=== PATIENT | female | born 1950 | race Caucasian/White ===

== ENCOUNTER → 2018-02-28 09:39 | Outpatient (CLI) | payer MEDICARE, SELFPAY ==
--- NOTE | 2018-02-28 09:45 | MM_ITS ---
MM Dig screening mamm BI w/CAD CAD Screening ORDERING PHYSICIAN : Ever Chun MD PATIENT AGE: 67 years GENDER: Femal INDICATION: Routine screening. No hormones. No new complaints. Noncontributory family history. TECHNIQUE: Standard CC and MLO images were obtained. R2 CAD reviewed. COMPARISON September 2015, December 2012 and 27 09 FINDINGS: Low-density breast bilaterally with generalized fatty replacement and minimal fibroglandular density in both breast.. No dominant mass nor suspicious calcifications in either breast. . No significant change since previous studies.. Follow up one year adequate IMPRESSION: ======== Stable bilateral mammogram. Low-density breast with no new areas of significant concern. Bilateral follow-up in one year recommended. BI-RADS Category: 1 Negative RECOMMENDED FOLLOW-UP: 1YR - 1 YEAR FOLLOW-UP (A letter has been sent to the patient regarding results of the study.)
--- NOTE | 2018-02-28 09:45 | XR_ITS ---
XR DEXA axial skeleton HISTORY: ITS.REASON: OSTEOPENIA ORDERING PHYSICIAN: Ever Chun MD PATIENT AGE: 67 years COMPARISON: 02/24/2012 FINDINGS: The BMD measured at the left femoral neck is 0.940 g/cm squared with a T score of -0.7 . The mean density in the hips has a T score of 0.9 which is normal. This is considered Normal according to the World Health Organization criteria. Fracture risk is Low. IMPRESSION: Normal bone density. Recommend follow-up exam in February 2020
== END ==
PROVIDERS: Family Provider Family Medicine; PCP Family Medicine; Visit Provider Family Medicine
DX: Z12.31 Encounter for screening mammogram for malignant neoplasm of breast (principal); M85.89 Other specified disorders of bone density and structure, multiple sites
CPT/HCPCS: 77067; 77080

== ENCOUNTER → 2018-03-16 14:54 | Outpatient (POV) | payer MEDICARE, SELFPAY | PROVIDERS: Family Provider Family Medicine; PCP Family Medicine | DX: Z00.00 Encounter for general adult medical examination without abnormal findings (principal) ==

== ENCOUNTER → 2018-08-16 08:51 | Outpatient (POV) | payer MEDICARE, SELFPAY | PROVIDERS: Visit Provider Dermatology | DX: Z00.00 Encounter for general adult medical examination without abnormal findings (principal) ==

== ENCOUNTER → 2018-08-23 14:38 | Outpatient (CLI) | payer MEDICARE, SELFPAY | PROVIDERS: PCP Family Medicine; Visit Provider Family Medicine | DX: R00.2 Palpitations (principal) | CPT/HCPCS: 93225; 93226 ==

== ENCOUNTER → 2018-08-24 08:56 | Outpatient (CLI) | payer MEDICARE, SELFPAY ==
[2018-08-24 10:49] LABS: Anion Gap 8.3 mEq/L (5-15); Blood Urea Nitrogen 15 mg/dL (7-18); Calcium 9.2 mg/dL (8.5-10.1); Carbon Dioxide 31 mmol/L (21.0-32.0); Chloride 104 mmol/L (98-107); Creatinine,Serum 0.99 mg/dL (0.55-1.02); Estimated Glomerular Filt Rate 56 ml/min (>60); GFR (African American) 68 ML/MIN (>60); Glucose 93 mg/dL (74-106); Potassium 4.3 mmoL/L (3.5-5.1); Sodium 139 mmol/L (136-145)
== END ==
PROVIDERS: PCP Family Medicine; Visit Provider Family Medicine
DX: E03.9 Hypothyroidism, unspecified (principal); R00.2 Palpitations; I10 Essential (primary) hypertension
CPT/HCPCS: 36415; 80048; 84436; 84443

== ENCOUNTER → 2019-03-03 08:09 | Outpatient (CLI) | payer MEDICARE, SELFPAY ==
--- NOTE | 2019-03-03 08:12 | MM_ITS ---
MM Dig screening mamm BI w/CAD CAD Screening COMPARISON: Digital mammograms with CAD 09/24/2015 and 02/28/2018 INDICATION: There is no personal or family history of breast cancer TECHNIQUE: Standard CC and MLO images were obtained. R2 CAD reviewed. FINDINGS: The breasts are composed primarily of fat with minimal scattered fibroglandular densities in each breast. There is no new or suspicious lesion in either breast and there are no suspicious microcalcifications. IMPRESSION: Fatty type breast parenchyma no suspicious lesion seen BI-RADS Category: 1 Negative RECOMMENDED FOLLOW-UP: 1YR - 1 YEAR FOLLOW-UP (A letter has been sent to the patient regarding results of the study.)
== END ==
PROVIDERS: PCP Family Medicine; Visit Provider Family Medicine
DX: Z12.31 Encounter for screening mammogram for malignant neoplasm of breast (principal)
CPT/HCPCS: 77067

== ENCOUNTER → 2020-02-29 09:02 | Outpatient (CLI) | payer MEDICARE, SELFPAY ==
--- NOTE | 2020-02-29 09:08 | XR_ITS ---
PROCEDURE: XR IVP W KUB CLINICAL INDICATION: RT FLANK PAIN COMPARISON: No exams were available for comparison FINDINGS: M[employer] Cutter exam demonstrates degenerative changes in the lumbar spine. There are mild osteoarthritic changes of the hips. The kidneys are normal size shape and position. The left renal collecting system has an unremarkable appearance. There is mild right hydronephrosis with dilatation of the right renal pelvis and renal calices. The right ureter is normal in caliber. The findings are consistent with a mild to moderate right UPJ stenosis. 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
== END ==
PROVIDERS: PCP Family Medicine; Visit Provider Family Medicine
DX: R10.9 Unspecified abdominal pain (principal)
CPT/HCPCS: 74400; Q9967

== ENCOUNTER → 2020-03-07 15:00 | Outpatient (CLI) | payer MEDICARE, SELFPAY ==
--- NOTE | 2020-03-07 15:07 | US_ITS ---
PROCEDURE: US TRANSVAGINAL CLINICAL INDICATION: H/O RT FLANK PAIN COMPARISON: No exams were available for comparison FINDINGS: UTERUS: 6cm x 4cmx 2cm with a combined endometrial thickness of 1.3mm LEFT OVARY: [id number] with a volume of 3.6ml. RIGHT OVARY: [id number] with a volume of 1ml. There is a small amount of fluid within the endometrium with a combined endometrial thickness of 2 mm. No cul-de-sac fluid is evident. No adnexal mass. IMPRESSION: There is a small amount of fluid within the endometrium otherwise negative Dictated by: Jose Ignacio MD 03/07/2020 16:48 Electronically signed by Jose Ignacio MD in [place] 03/07/2020 16:48
== END ==
PROVIDERS: PCP Family Medicine; Visit Provider Family Medicine
DX: Z87.898 Personal history of other specified conditions (principal)
CPT/HCPCS: 76830

== ENCOUNTER → 2020-03-22 10:36 | Outpatient (CLI) | payer MEDICARE, SELFPAY ==
--- NOTE | 2020-03-22 10:40 | MM_ITS ---
PROCEDURE: MM DIG SCREENING MAMM BI W/CAD DIGITAL BREAST TOMOSYNTHESIS INCLUDED Patient Age:69Y CLINICAL INDICATION: SCREENING 69-year-old no hormones no new complaints noncontributory family history COMPARISON: DIGMAMMS MAMMOGRAM SCREEN-LADLE HANDLER N/C from 03/31/2006 DIGMAMMS MAMMOGRAM SCREEN-LADLE HANDLER N/C from 01/07/2009 [facility] DIGITAL MAMM-SCREEN BILATERAL from 12/19/2010 [facility] DIGITAL MAMM-SCREEN BILATERAL from 12/26/2012 [facility] DIG MAMM-SCREEN FLACO from 09/24/2015 [facility] MM Dig screening mamm BI w/CAD from 02/28/2018 [facility] MM Dig screening mamm BI w/CAD from 03/03/2019 TECHNIQUE: Standard CC and MLO images were obtained. R2 CAD reviewed. Bilateral digital breast tomosynthesis included. FINDINGS: Minimal residual fibroglandular elements Lower density breast with generalized fatty replacement.. No dominant or suspicious mass. Few tiny round densities both breast again noted. No architectural distortion the no suspicious calcifications. No significant change since prior studies. Right breast: No significant new findings. Subtle nodular density upper-outer quadrant right breast most likely reflects stable small intramammary node but Left breast: No new areas of significant concern Few scattered small nodular densities similar to last year noted.. Follow-up 1 year recommended and would be encouraged IMPRESSION: No new findings of significant concern. Bilateral follow-up 1 year recommended and would be encouraged . BI-RAD Category: 2 Benign Finding(s) FOLLOW-UP: 1YR 1 Year Follow-up (A letter has been sent to the patient regarding results of the study.) Dictated by: Rito Cast MD 04/02/2020 08:52 Electronically signed by Rito Cast MD in [place] 04/02/2020 08:52
== END ==
PROVIDERS: PCP Family Medicine; Visit Provider Nurse Practitioner Family
DX: Z12.31 Encounter for screening mammogram for malignant neoplasm of breast (principal)
CPT/HCPCS: 77063; 77067

== ENCOUNTER → 2021-08-12 08:19 | Outpatient (CLI) | payer MEDICARE, SELFPAY ==
--- NOTE | 2021-08-12 08:22 | MM_ITS ---
PROCEDURE: MM DIG SCREENING MAMM BI W/CAD Digital Breast Tomosynthesis Included CLINICAL INDICATION: SCREENING There is no personal or family history of breast cancer. COMPARISON: MG [facility] MM Dig screening mamm BI w/CAD from 02/28/2018 MG [facility] MM Dig screening mamm BI w/CAD from 03/03/2019 MG MM DIG SCREENING MAMM BI W/CAD from 03/22/2020 TECHNIQUE: Standard CC and MLO images and 3D Tomosynthesis was obtained. R2 CAD reviewed. FINDINGS: The breasts are composed primarily of fat with minimal scattered diffuse fibroglandular densities in each breast. There are 2 mole markers right breast. There are no CAD markings. There are stable tiny benign-appearing nodular densities in each breast. There is no suspicious lesion and no suspicious microcalcifications. IMPRESSION: Fatty type breast parenchyma with no suspicious lesions seen BI-RAD Category: 2 Benign Finding(s) FOLLOW-UP: 1YR 1 Year Follow-up (A letter has been sent to the patient regarding results of the study.) Dictated by: Dr. Juan Bejarano MD 08/15/2021 14:37 Dr. Juan Bejarano MD in [place] 08/15/2021 14:37
== END ==
PROVIDERS: PCP Family Medicine; Visit Provider Nurse Practitioner Family
DX: Z12.31 Encounter for screening mammogram for malignant neoplasm of breast (principal)
CPT/HCPCS: 77063; 77067

== ENCOUNTER → 2021-08-19 09:03 | Outpatient (POV) | payer MEDICARE, SELFPAY | PROVIDERS: Visit Provider Dermatology | DX: Z00.00 Encounter for general adult medical examination without abnormal findings (principal) ==

== ENCOUNTER → 2022-09-02 10:07 | Outpatient (CLI) | payer MEDICARE, SELFPAY ==
[2022-09-02 10:14] LABS: Microscopic, Urine URINE MICROSCOPIC (MICROSCOPIC)
[2022-09-02 11:10] LABS: Appearance,Urine CLEAR (Clear); Basophils # 0.1 K/mm3 (0-0.2); Basophils % 1.1 % (0.1-2.0); Bilirubin,Urine Negative (Negative); Blood, Urine TRACE-L (Negative); Color,Urine YELLOW (Yellow); Eosinophils # 0.2 K/mm3 (0.0-0.4); Eosinophils % 2.6 % (0.1-12.0); Glucose,Urine (UA) Negative (Negative); Hematocrit 44.1 % (37.0-47.0); Ketones,Urine Negative (Negative); Leukocyte Esterase,Urine Negative (Negative); Lymphocytes # 2.9 K/mm3 (0.7-4.5); Lymphocytes % 35.7 % (10-50); Mean Corpuscular HGB Conc 31.7 g/dL (31.8-35.4); Mean Corpuscular Hemoglobin 30.2 pg (27.0-31.2); Mean Corpuscular Volume 95.4 fl (81-99); Mean Platelet Volume 7.8 fl (7.4-10.4); Monocytes # 0.5 K/mm3 (0.1-1.0); Monocytes % 5.9 % (1.7-9.3); Neutrophils # 4.5 K/mm3 (1.8-7.8); Neutrophils % 54.7 % (37.0-80.0); Nitrate,Urine Negative (Negative); Platelet Count 354 K/mm3 (142-424); Protein,Urine Negative (Negative); Red Blood Count 4.62 M/mm3 (4.20-5.40); Red Cell Distribution Width 12.5 % (11.5-17.5); Specific Gravity, Urine <= 1.005 (1.005-1.030); Urobilinogen,Urine 0.2 EU/dl (0.2); White Blood Count 8.2 K/mm3 (4.8-10.8)
[2022-09-02 11:24] LABS: WBC,Urine Occasional #/hpf (0-3)
[2022-09-02 11:25] LABS: Bacteria,Urine Trace /lpf
[2022-09-02 11:28] LABS: Alanine Aminotransferase 24 U/L (12-78); Albumin Level 4.2 g/dl (3.5-5.0); Albumin/Globulin Ratio 1.5 (1.1-1.8); Alkaline Phosphatase 101 U/L (38-126); Anion Gap 15.1 mEq/L (5-15); Aspartate Amino Transferase 37 U/L (14-36); Bilirubin,Total 0.5 mg/dl (0.2-1.3); Blood Urea Nitrogen 14 mg/dl (7-17); Calcium 9.3 mg/dl (8.4-10.2); Carbon Dioxide 26 mmol/L (22.0-30.0); Chloride 106 mmol/L (98-107); Chol/HDL Ratio 2.6 (1-3.5); Cholesterol 139 mg/dl (140-200); Estimated Glomerular Filt Rate 62 ml/min (>60); GFR (African American) 75 ML/MIN (>60); Globulin 2.8 g/dL (1.3-3.2); Glucose 95 mg/dl (74-100); HDL Cholesterol 54 mg/dl (40-60); Potassium 5.1 mmoL/L (3.5-5.1); Sodium 142 mmol/L (136-145); Triglycerides 106 mg/dl (30-150); VLDL Cholesterol 21 mg/dL (0-40)
[2022-09-02 11:39] LABS: Direct LDL Cholesterol 54.09 mg/dL (100-129)
[2022-09-02 11:58] LABS: Thyroid Stimulating Hormone 0.26 uIU/mL (0.465-4.68)
== END ==
PROVIDERS: PCP Family Medicine; Visit Provider Family Medicine
DX: E03.9 Hypothyroidism, unspecified (principal); I10 Essential (primary) hypertension; E78.5 Hyperlipidemia, unspecified
CPT/HCPCS: 36415; 80053; 80061; 81001; 84443; 85025

== ENCOUNTER → 2022-09-10 08:44 | Outpatient (CLI) | payer MEDICARE, SELFPAY ==
--- NOTE | 2022-09-10 08:45 | XR_ITS ---
FINAL REPORT TECHNIQUE: Bone mineral density was calculated of the lumbar spine and hip. CLINICAL HISTORY: .post menopausal FINDINGS: DEXA BONE DENSITY AXIAL SKELETON Using L1-4, the bone mineral density of the spine is 1.219 g/cm2, corresponding to T-score of 1.6. Using the left hip, the bone mineral density of the femoral neck is 0.924 g/cm2, corresponding to a T-score of -0.1. NOTE: T-score: Standard deviation compared with peak bone mass of young adult mean. *Following the recommendations of the International Society of Bone densitometry, classification of hip BMD is based on the lower of two T-scores; total hip or femoral neck. IMPRESSION: Normal bone mineral density of the lumbar spine and hip. FRAX not reported because all T-scores for spine total, hip total, femoral neck at or above-1.0. Reviewed, Interpreted and Dictated by Brayden Romeo III, MD Transcribed by Taya Maher Authenticated and [facility]
== END ==
PROVIDERS: PCP Family Medicine; Visit Provider Family Medicine
DX: Z78.0 Asymptomatic menopausal state
CPT/HCPCS: 77080

== ENCOUNTER → 2022-09-21 15:09 | Outpatient (CLI) | payer MEDICARE, SELFPAY ==
--- NOTE | 2022-09-21 15:09 | MM_ITS ---
PROCEDURE INFORMATION: Exam: MG Bilateral Screening 3D Mammography Exam date and time: 09/21/2022 3:36 PM Age: 71 years old Clinical indication: Screening. No family history of breast cancer. TECHNIQUE: Imaging protocol: Bilateral Screening tomosynthesis and 2D mammography including computer-aided detection (CAD) when performed. COMPARISON: 1. MG MM DIG SCREENING MAMM BI W/CAD 08/12/2021 8:24 AM 2. MG MM DIG SCREENING MAMM BI W/CAD 03/22/2020 11:05 AM 3. MG [facility] MM Dig screening mamm BI w/CAD 03/03/2019 8:39 AM 4. MG [facility] MM Dig screening mamm BI w/CAD 02/28/2018 10:09 AM FINDINGS: MAMMOGRAPHY: Breast composition: The breasts are almost entirely fatty. Mass: No suspicious mass. Architectural distortion: None. Calcifications: No suspicious calcifications. Asymmetric density: None. Skin thickening: None. Axillary adenopathy: None. IMPRESSION: No mammographic evidence of malignancy. Annual screening is recommended unless otherwise clinically indicated. ASSESSMENT: BI-RADS Category 1: Negative
--- NOTE | 2022-09-21 15:09 | US_ITS ---
FINAL REPORT TECHNIQUE: Transvaginal ultrasound imaging of the pelvis was obtained. CLINICAL HISTORY: .follow up, hx of fluid in uterus, post katina FINDINGS: The uterus measures 6.5 x 3.0 x 4.2 cm. The endometrium measures 7 mm. The left ovary measures 1.93 cm. The right ovary is not visualized. Fluid is again seen in the endometrium measuring 4 mm in depth. IMPRESSION: Persistent fluid in the endometrium. Reviewed, Interpreted and Dictated by Vamshi Roche MD Transcribed by Chasity Herndon Authenticated and [facility]
== END ==
PROVIDERS: PCP Family Medicine; Visit Provider Family Medicine
DX: N95.0 Postmenopausal bleeding (principal); Z12.31 Encounter for screening mammogram for malignant neoplasm of breast
CPT/HCPCS: 76856; 77063; 77067

== ENCOUNTER → 2022-11-17 09:39 | Outpatient (CLI) | payer MEDICARE, SELFPAY ==
[2022-11-17 09:58] LABS: MANUAL DIFFERENTIAL MANUAL DIFFERENTIAL (MANUAL DIFF)
[2022-11-17 11:05] LABS: Basophils # 0.1 K/mm3 (0-0.2); Basophils % 0.8 % (0.1-2.0); Eosinophils # 0.1 K/mm3 (0.0-0.4); Eosinophils % 1.2 % (0.1-12.0); Hematocrit 45.9 % (37.0-47.0); Hemoglobin 14.4 g/dL (12.2-16.2); Lymphocytes # 3.2 K/mm3 (0.7-4.5); Mean Corpuscular HGB Conc 31.3 g/dL (31.8-35.4); Mean Corpuscular Hemoglobin 29.9 pg (27.0-31.2); Mean Corpuscular Volume 95.6 fl (81-99); Mean Platelet Volume 8.4 fl (7.4-10.4); Monocytes # 0.4 K/mm3 (0.1-1.0); Neutrophils # 4.4 K/mm3 (1.8-7.8); Platelet Count 373 K/mm3 (142-424); Red Cell Distribution Width 12.5 % (11.5-17.5); White Blood Count 8.2 K/mm3 (4.8-10.8)
[2022-11-17 11:18] LABS: Alanine Aminotransferase 25 U/L (12-78); Albumin Level 4.5 g/dl (3.5-5.0); Albumin/Globulin Ratio 1.6 (1.1-1.8); Alkaline Phosphatase 76 U/L (38-126); Anion Gap 14.1 mEq/L (5-15); Aspartate Amino Transferase 31 U/L (14-36); Bilirubin,Total 0.5 mg/dl (0.2-1.3); Blood Urea Nitrogen 16 mg/dl (7-17); Calcium 9.5 mg/dl (8.4-10.2); Carbon Dioxide 26 mmol/L (22.0-30.0); Chloride 104 mmol/L (98-107); Estimated Glomerular Filt Rate 55 ml/min (>60); GFR (African American) 66 ML/MIN (>60); Globulin 2.9 g/dL (1.3-3.2); Glucose 93 mg/dl (74-100); Potassium 5.1 mmoL/L (3.5-5.1); Sodium 139 mmol/L (136-145); Total Protein,Serum 7.4 g/dl (6.3-8.2)
[2022-11-17 11:22] LABS: Lymphocytes % 38 % (10-50); Monocytes % 7 % (2-9); Neutrophils % 55 % (42-76); Total Cells Counted 100
[2022-11-17 11:23] LABS: Platelet Estimate Normal; RBC Morphology Normal
[2022-11-17 11:50] LABS: Thyroid Stimulating Hormone 2.37 uIU/mL (0.465-4.68)
== END ==
PROVIDERS: PCP Family Medicine; Visit Provider Family Medicine
DX: E03.9 Hypothyroidism, unspecified (principal); E55.9 Vitamin D deficiency, unspecified; E78.5 Hyperlipidemia, unspecified; I10 Essential (primary) hypertension
CPT/HCPCS: 36415; 80053; 84443; 85007; 85014; 85018; 85048; 85049

== ENCOUNTER → 2023-01-06 12:54 | Outpatient (CLI) | payer MEDICARE, SELFPAY ==
--- NOTE | 2023-01-06 12:55 | US_ITS ---
FINAL REPORT TECHNIQUE: Sonographic images of the pelvis were obtained transvaginally. CLINICAL HISTORY: fluid in endometrial cavity COMPARISON: 03/07/2020 and 09/21/2022 FINDINGS: The uterus is anteverted and anteflexed. It measures 6.4 x 3.6 x 3.0 cm. There is fluid within the endometrial cavity and also there are some internal echoes. The endometrial stripe measures 4 mm which is normal in a postmenopausal patient. The myometrium is homogeneous. The cervix is within normal limits. The right ovary measures 1.5 x 1.5 x 0.8 cm. It is normal in appearance. The left ovary measures 1.3 x 1.3 x 1.7 cm. It is normal in appearance. Color imaging to the ovaries is within normal limits. There is a small amount of free fluid. IMPRESSION: 1. Small amount of fluid within the endometrial cavity which has been present since 2019, cervical stenosis cannot be excluded. Internal echoes within the endometrial cavity could be blood product. 2. Normal endometrial stripe for postmenopausal patient. Reviewed, Interpreted and Dictated by Britta Eddy MD Transcribed by Taya Maher Authenticated and [facility]
== END ==
PROVIDERS: PCP Family Medicine; Visit Provider Obstetrics & Gynecology
DX: N85.9 Noninflammatory disorder of uterus, unspecified (principal)
CPT/HCPCS: 76830

== ENCOUNTER → 2023-05-17 11:20 | Outpatient (CLI) | payer MEDICARE, SELFPAY ==
[2023-05-17 10:56] LABS: Alanine Aminotransferase 29 U/L (12-78); Albumin Level 4.4 g/dl (3.5-5.0); Albumin/Globulin Ratio 1.6 (1.1-1.8); Alkaline Phosphatase 77 U/L (38-126); Anion Gap 12.5 mEq/L (5-15); Aspartate Amino Transferase 33 U/L (14-36); Bilirubin,Total 0.7 mg/dl (0.2-1.3); Blood Urea Nitrogen 16 mg/dl (7-17); Calcium 9.5 mg/dl (8.4-10.2); Carbon Dioxide 26 mmol/L (22.0-30.0); Chloride 106 mmol/L (98-107); Chol/HDL Ratio 2.3 (1-3.5); Cholesterol 138 mg/dl (140-200); Estimated Glomerular Filt Rate 55 ml/min (>60); GFR (African American) 66 ML/MIN (>60); Globulin 2.8 g/dL (1.3-3.2); Glucose 102 mg/dl (74-100); HDL Cholesterol 61 mg/dl (40-60); Potassium 4.5 mmoL/L (3.5-5.1); Sodium 140 mmol/L (136-145); Total Protein,Serum 7.2 g/dl (6.3-8.2); Triglycerides 127 mg/dl (30-150); VLDL Cholesterol 25 mg/dL (0-40)
[2023-05-17 11:07] LABS: Direct LDL Cholesterol 57.46 mg/dL (100-129)
[2023-05-17 11:13] LABS: 25-OH Vitamin D, Total 65.3 ng/mL (30-100)
[2023-05-17 11:26] LABS: Thyroid Stimulating Hormone 0.74 uIU/mL (0.465-4.68)
== END ==
PROVIDERS: PCP Nurse Practitioner Family; Visit Provider Nurse Practitioner Family
DX: E55.9 Vitamin D deficiency, unspecified (principal); Z13.1 Encounter for screening for diabetes mellitus; E03.9 Hypothyroidism, unspecified; E78.5 Hyperlipidemia, unspecified; Z79.899 Other long term (current) drug therapy
CPT/HCPCS: 80053; 80061; 82306; 84443

== ENCOUNTER → 2023-08-23 11:46 | Outpatient (CLI) | payer MEDICARE, SELFPAY ==
--- NOTE | 2023-08-23 11:51 | XR_ITS ---
FINAL REPORT CLINICAL HISTORY: lle injury cut on lateral side (08/18/23). infected FINDINGS: LEFT TIBIA AND FIBULA There is no acute fracture or dislocation. The joint spaces are intact. There are mild to moderate degenerative changes, worse at the patellofemoral joint. There is no soft tissue abnormality. IMPRESSION: No acute fracture Reviewed, Interpreted and Dictated by Brayden Romeo III, MD Transcribed by Chasity Herndon Authenticated and [facility]
== END ==
PROVIDERS: PCP Nurse Practitioner Family; Visit Provider Nurse Practitioner Family
DX: S89.92XA Unspecified injury of left lower leg, initial encounter (principal); M79.662 Pain in left lower leg; B96.89 Other specified bacterial agents as the cause of diseases classified elsewhere
CPT/HCPCS: 73590; 87070; 87205

== ENCOUNTER → 2023-08-23 16:56 | Outpatient (CLI) | payer MEDICARE, SELFPAY | PROVIDERS: PCP Nurse Practitioner Family; Visit Provider Nurse Practitioner Family | DX: S81.842A Puncture wound with foreign body, left lower leg, initial encounter (principal) ==

== ENCOUNTER → 2023-08-30 14:25 | Outpatient (CLI) | payer MEDICARE, SELFPAY ==
[2023-08-30 13:05] LABS: Basophils % 0.5 % (0.1-2.0); Eosinophils # 0.1 K/mm3 (0.0-0.4); Eosinophils % 1.1 % (0.1-12.0); Hematocrit 43.3 % (37.0-47.0); Hemoglobin 14.7 g/dL (12.2-16.2); Lymphocytes # 2.3 K/mm3 (0.7-4.5); Mean Corpuscular HGB Conc 33.8 g/dL (31.8-35.4); Mean Corpuscular Hemoglobin 31.9 pg (27.0-31.2); Mean Corpuscular Volume 94.3 fl (81-99); Mean Platelet Volume 8.2 fl (7.4-10.4); Monocytes # 0.7 K/mm3 (0.1-1.0); Monocytes % 8.9 % (1.7-9.3); Neutrophils # 4.3 K/mm3 (1.8-7.8); Neutrophils % 58.5 % (37.0-80.0); Platelet Count 324 K/mm3 (142-424); Red Cell Distribution Width 12.4 % (11.5-17.5); White Blood Count 7.3 K/mm3 (4.8-10.8)
[2023-08-30 13:25] LABS: Chloride 102 mmol/L (98-107); Potassium 5.3 mmoL/L (3.5-5.1); Sodium 136 mmol/L (136-145)
[2023-08-30 13:27] LABS: Alanine Aminotransferase 34 U/L (12-78); Aspartate Amino Transferase 40 U/L (14-36); Blood Urea Nitrogen 16 mg/dl (7-17); Estimated Glomerular Filt Rate 37 ml/min (>60); GFR (African American) 45 ML/MIN (>60)
[2023-08-30 13:28] LABS: Albumin Level 4.7 g/dl (3.5-5.0); Albumin/Globulin Ratio 1.6 (1.1-1.8); Alkaline Phosphatase 69 U/L (38-126); Anion Gap 14.3 mEq/L (5-15); Bilirubin,Total 0.3 mg/dl (0.2-1.3); Calcium 9.6 mg/dl (8.4-10.2); Carbon Dioxide 25 mmol/L (22.0-30.0); Glucose 88 mg/dl (74-100); Total Protein,Serum 7.7 g/dl (6.3-8.2)
== END ==
PROVIDERS: PCP Nurse Practitioner Family; Visit Provider Nurse Practitioner Family
DX: S81.842A Puncture wound with foreign body, left lower leg, initial encounter (principal)
CPT/HCPCS: 36415; 80053; 83735; 85025

== ENCOUNTER → 2023-09-06 15:17 | Outpatient (CLI) | payer MEDICARE, SELFPAY ==
[2023-09-06 13:42] LABS: Alanine Aminotransferase 32 U/L (12-78); Albumin Level 4.5 g/dl (3.5-5.0); Albumin/Globulin Ratio 1.5 (1.1-1.8); Alkaline Phosphatase 67 U/L (38-126); Anion Gap 14.8 mEq/L (5-15); Aspartate Amino Transferase 34 U/L (14-36); Bilirubin,Total 0.6 mg/dl (0.2-1.3); Blood Urea Nitrogen 17 mg/dl (7-17); Calcium 9.5 mg/dl (8.4-10.2); Carbon Dioxide 24 mmol/L (22.0-30.0); Chloride 104 mmol/L (98-107); Estimated Glomerular Filt Rate 55 ml/min (>60); GFR (African American) 66 ML/MIN (>60); Glucose 87 mg/dl (74-100); Potassium 4.8 mmoL/L (3.5-5.1); Sodium 138 mmol/L (136-145); Total Protein,Serum 7.5 g/dl (6.3-8.2)
== END ==
PROVIDERS: PCP Nurse Practitioner Family; Visit Provider Nurse Practitioner Family
DX: N17.9 Acute kidney failure, unspecified (principal)
CPT/HCPCS: 36415; 80053

== ENCOUNTER 2023-11-17 18:23 | Outpatient (CLI) | payer MEDICARE, SELFPAY ==
[2023-11-17 20:08] LABS: Chol/HDL Ratio 3.3 (1-3.5); Cholesterol 144 mg/dl (140-200); HDL Cholesterol 43 mg/dl (40-60); Triglycerides 144 mg/dl (30-150); VLDL Cholesterol 29 mg/dL (0-40)
[2023-11-17 20:22] LABS: Free T4 (Free Thyroxine) 1.42 ng/dl (0.78-2.19)
[2023-11-17 20:36] LABS: Direct LDL Cholesterol 72.22 mg/dL (100-129)
[2023-11-17 21:15] LABS: Vitamin B12 470 pg/mL (239-931)
== END 2023-11-17 23:59 ==
LOC: LAB.DROPOF 18:24
PROVIDERS: PCP Nurse Practitioner Family; Visit Provider Nurse Practitioner Family
DX: E78.5 Hyperlipidemia, unspecified (principal); R53.83 Other fatigue; E03.9 Hypothyroidism, unspecified
CPT/HCPCS: 80061; 82607; 84439

== ENCOUNTER 2023-11-18 10:06 | Outpatient (CLI) | payer MEDICARE, SELFPAY ==
[2023-11-18 09:02] LABS: Thyroid Stimulating Hormone 1.55 uIU/mL (0.465-4.68)
== END 2023-11-18 23:59 ==
LOC: LAB.DROPOF 11-23 10:07
PROVIDERS: PCP Nurse Practitioner Family; Visit Provider Nurse Practitioner Family
DX: E03.9 Hypothyroidism, unspecified (principal); G47.33 Obstructive sleep apnea (adult) (pediatric)
CPT/HCPCS: 84443

== ENCOUNTER 2024-01-18 10:05 | Outpatient (POV) | payer MEDICARE, SELFPAY | END 2024-01-18 23:59 | disposition home or self-care (01) | LOC: SC 10:05 | PROVIDERS: PCP Nurse Practitioner Family; Visit Provider Dermatology | DX: Z00.00 Encounter for general adult medical examination without abnormal findings (principal) ==

== ENCOUNTER 2024-05-09 15:30 | Outpatient (CLI) | payer MEDICARE, SELFPAY ==
[2024-05-09 13:11] LABS: Microscopic, Urine URINE MICROSCOPIC (MICROSCOPIC)
[2024-05-09 13:38] LABS: Appearance,Urine CLEAR (Clear); Bilirubin,Urine Negative (Negative); Blood, Urine Negative (Negative); Color,Urine YELLOW (Yellow); Glucose,Urine (UA) Negative (Negative); Ketones,Urine Negative (Negative); Leukocyte Esterase,Urine Negative (Negative); Nitrate,Urine Negative (Negative); PH,Urine 6.5 (5.0-8.5); Protein,Urine Negative (Negative); Specific Gravity, Urine <= 1.005 (1.005-1.030); Urobilinogen,Urine 0.2 EU/dl (0.2)
[2024-05-09 14:00] LABS: Basophils # 0.1 K/mm3 (0-0.2); Basophils % 0.8 % (0.1-2.0); Eosinophils # 0.6 K/mm3 (0.0-0.4); Eosinophils % 6.5 % (0.1-12.0); Hemoglobin 14.4 g/dL (12.2-16.2); Lymphocytes # 2.8 K/mm3 (0.7-4.5); Lymphocytes % 32.4 % (10-50); Mean Corpuscular HGB Conc 37.1 g/dL (31.8-35.4); Mean Corpuscular Hemoglobin 35.5 pg (27.0-31.2); Mean Corpuscular Volume 95.9 fl (81-99); Monocytes # 0.5 K/mm3 (0.1-1.0); Monocytes % 6.3 % (1.7-9.3); Neutrophils # 4.7 K/mm3 (1.8-7.8); Platelet Count 306 K/mm3 (142-424); Red Blood Count 4.06 M/mm3 (4.20-5.40); Red Cell Distribution Width 13.4 % (11.5-17.5); White Blood Count 8.6 K/mm3 (4.8-10.8)
[2024-05-09 14:01] LABS: Alanine Aminotransferase 28 U/L (12-78); Albumin Level 4.4 g/dl (3.5-5.0); Albumin/Globulin Ratio 1.5 (1.1-1.8); Alkaline Phosphatase 76 U/L (38-126); Anion Gap 11.7 mEq/L (5-15); Aspartate Amino Transferase 35 U/L (14-36); Bilirubin,Total 0.8 mg/dl (0.2-1.3); Blood Urea Nitrogen 20 mg/dl (7-17); Calcium 9.7 mg/dl (8.4-10.2); Carbon Dioxide 26 mmol/L (22.0-30.0); Chloride 106 mmol/L (98-107); Chol/HDL Ratio 3.1 (1-3.5); Cholesterol 149 mg/dl (140-200); Estimated Glomerular Filt Rate 44 ml/min (>60); GFR (African American) 53 ML/MIN (>60); Glucose 94 mg/dl (74-100); HDL Cholesterol 48 mg/dl (40-60); Potassium 4.7 mmoL/L (3.5-5.1); Sodium 139 mmol/L (136-145); Total Protein,Serum 7.4 g/dl (6.3-8.2); Triglycerides 128 mg/dl (30-150); VLDL Cholesterol 26 mg/dL (0-40)
[2024-05-09 14:16] LABS: Free T4 (Free Thyroxine) 1.47 ng/dl (0.78-2.19)
[2024-05-09 14:18] LABS: 25-OH Vitamin D, Total 75.4 ng/mL (30-100)
[2024-05-09 15:07] LABS: Iron 136 ug/dL (37-170)
[2024-05-09 15:16] LABS: Total Iron Binding Capacity 359 ug/dL (265-497)
[2024-05-09 15:17] LABS: Vitamin B12 404 pg/mL (239-931)
[2024-05-09 15:28] LABS: Bacteria,Urine Trace /lpf
[2024-05-09 15:37] LABS: Hemoglobin A1C 5.6 % (4.0-6.0)
[2024-05-09 15:45] LABS: Ferritin 67.5 ng/ml (11.1-264)
[2024-05-10 10:18] LABS: Thyroid Stimulating Hormone 0.95 uIU/mL (0.465-4.68)
== END 2024-05-09 23:59 | disposition home or self-care (01) ==
LOC: LAB.DROPOF 15:30
PROVIDERS: PCP Nurse Practitioner Family; Visit Provider Nurse Practitioner Family
DX: R53.83 Other fatigue (principal); I10 Essential (primary) hypertension; Z13.1 Encounter for screening for diabetes mellitus; E78.5 Hyperlipidemia, unspecified; D64.9 Anemia, unspecified; E55.9 Vitamin D deficiency, unspecified; E03.9 Hypothyroidism, unspecified
CPT/HCPCS: 80050; 80053; 80061; 81001; 82306; 82607; 82728; 83036; 83540; 83550; 84156; 84439; 84443; 85025; 87086

== ENCOUNTER 2024-05-18 09:43 | Outpatient (CLI) | payer MEDICARE, SELFPAY ==
--- NOTE | 2024-05-18 09:44 | MM_ITS ---
PROCEDURE INFORMATION: Exam: MG Bilateral Screening 3D Mammography Exam date and time: 05/18/2024 9:30 AM Age: 73 years old Clinical indication: Screening examination TECHNIQUE: Imaging protocol: Bilateral Screening tomosynthesis and 2D mammography including computer-aided detection (CAD) when performed. COMPARISON: 1. MG MM DIG SCREENING MAMM BI W/CAD 09/21/2022 3:36 PM 2. MG MM DIG SCREENING MAMM BI W/CAD 08/12/2021 8:24 AM FINDINGS: MAMMOGRAPHY: Breast composition: There are scattered areas of fibroglandular density. Mass: None. Architectural distortion: None. Calcifications: No suspicious calcifications. Asymmetric density: None. Skin thickening: None. Axillary adenopathy: None. IMPRESSION: No mammographic evidence of malignancy. Annual screening is recommended unless otherwise clinically indicated. ASSESSMENT: BI-RADS Category 1: Negative
== END 2024-05-18 23:59 | disposition home or self-care (01) ==
LOC: RAD 09:44
PROVIDERS: PCP Nurse Practitioner Family; Visit Provider Nurse Practitioner Family
DX: Z12.31 Encounter for screening mammogram for malignant neoplasm of breast (principal)
CPT/HCPCS: 77063; 77067

== ENCOUNTER 2024-07-04 11:28 | Outpatient (CLI) | payer MEDICARE, SELFPAY | END 2024-07-04 23:59 | disposition home or self-care (01) | LOC: LAB 10-28 17:06 | PROVIDERS: PCP Nurse Practitioner Family; Visit Provider Nurse Practitioner Family | DX: E03.9 Hypothyroidism, unspecified (principal); M25.561 Pain in right knee | CPT/HCPCS: 80053; 84443; 84550; 85025 ==

== ENCOUNTER 2024-07-04 11:45 | Outpatient (CLI) | payer MEDICARE, SELFPAY ==
--- NOTE | 2024-07-04 12:01 | XR_ITS ---
FINAL REPORT CLINICAL HISTORY: right knee pain FINDINGS: RIGHT KNEE: 3 images of the right knee were obtained. There is no evidence of fracture or dislocation. There is mild medial compartment narrowing with osteophytes present at the medial joint margin. There is an ossific density superior to the patella, which may be degenerative. The patella may be a bipartite patella. A small joint effusion is present. IMPRESSION: Degenerative change as described above. Reviewed, Interpreted and Dictated by Vamshi Roche MD Transcribed by Wendie Daigle Authenticated and . [facility]
[2024-07-04 14:01] LABS: Basophils # 0.1 K/mm3 (0-0.2); Basophils % 0.7 % (0.1-2.0); Eosinophils # 0.5 K/mm3 (0.0-0.4); Eosinophils % 5.2 % (0.1-12.0); Hematocrit 45.5 % (37.0-47.0); Hemoglobin 14.3 g/dL (12.2-16.2); Lymphocytes # 3.4 K/mm3 (0.7-4.5); Lymphocytes % 37.7 % (10-50); Mean Corpuscular HGB Conc 31.4 g/dL (31.8-35.4); Mean Corpuscular Hemoglobin 30.4 pg (27.0-31.2); Mean Platelet Volume 8.9 fl (7.4-10.4); Monocytes # 0.6 K/mm3 (0.1-1.0); Monocytes % 6.9 % (1.7-9.3); Neutrophils # 4.4 K/mm3 (1.8-7.8); Neutrophils % 49.5 % (37.0-80.0); Platelet Count 326 K/mm3 (142-424); Red Cell Distribution Width 13.1 % (11.5-17.5); White Blood Count 8.9 K/mm3 (4.8-10.8)
[2024-07-04 17:31] LABS: Alanine Aminotransferase 28 U/L (12-78); Albumin Level 4.1 g/dl (3.5-5.0); Albumin/Globulin Ratio 1.3 (1.1-1.8); Alkaline Phosphatase 75 U/L (38-126); Aspartate Amino Transferase 36 U/L (14-36); Bilirubin,Total 0.7 mg/dl (0.2-1.3); Blood Urea Nitrogen 16 mg/dl (7-17); Calcium 9.6 mg/dl (8.4-10.2); Carbon Dioxide 23 mmol/L (22.0-30.0); Chloride 109 mmol/L (98-107); Estimated Glomerular Filt Rate 62 ml/min (>60); GFR (African American) 74 ML/MIN (>60); Globulin 3.1 g/dL (1.3-3.2); Glucose 91 mg/dl (74-100); Sodium 138 mmol/L (136-145); Total Protein,Serum 7.2 g/dl (6.3-8.2); Uric Acid 6.5 mg/dl (2.5-6.2)
[2024-07-04 17:59] LABS: Thyroid Stimulating Hormone 0.58 uIU/mL (0.465-4.68)
== END 2024-07-04 23:59 | disposition home or self-care (01) ==
LOC: RAD 11:46
PROVIDERS: PCP Nurse Practitioner Family; Visit Provider Nurse Practitioner Family
DX: M25.561 Pain in right knee (principal); E03.9 Hypothyroidism, unspecified
CPT/HCPCS: 73562; 80050; 80053; 84443; 84550; 85025

== ENCOUNTER 2024-07-31 07:54 | Outpatient (CLI) | payer MEDICARE, SELFPAY ==
--- NOTE | 2024-07-31 07:54 | MR_ITS ---
FINAL REPORT TECHNIQUE: Multiplanar MR without contrast CLINICAL HISTORY: right knee pain. SWELLING IN KNEE. UNABLE TO BEAR WEIGHT. LATERAL SIDED KNEE PAIN COMPARISON: None FINDINGS: Articular cartilage: Tricompartmental degenerative changes are most pronounced in the medial compartment. Marrow signal: Small presumed enchondroma of the distal femur. No significant marrow edema. Joint fluid: Moderate sized joint effusion. Joint body in the suprapatellar bursa measures up to 15 mm. Probable joint bodies in the posterior lateral epicondyle measuring up to 8 mm, best seen on image 21 of series 9. Menisci: Tear at the root of the posterior horn medial meniscus. Lateral meniscus intact. Ligaments: Collateral, cruciate and patellofemoral ligaments intact Tendons: Quadriceps and patellar tendon normal Prepatellar bursitis is noted. IMPRESSION: Medial meniscal tear. Joint bodies as above. Tricompartmental degenerative changes. Reviewed, Interpreted and Dictated by Ever Rosario MD Transcribed by Myrna Mackenzie Authenticated and . [facility]
== END 2024-07-31 23:59 | disposition home or self-care (01) ==
LOC: RAD 07:54
PROVIDERS: PCP Nurse Practitioner Family; Visit Provider Nurse Practitioner Family
DX: M25.561 Pain in right knee (principal)
CPT/HCPCS: 73721

== ENCOUNTER 2024-08-07 14:43 | Outpatient (CLI) | payer MEDICARE, SELFPAY ==
[2024-08-07 13:23] LABS: Uric Acid 4.3 mg/dl (2.5-6.2)
== END 2024-08-07 23:59 | disposition home or self-care (01) ==
LOC: LAB.DROPOF 14:43
PROVIDERS: PCP Nurse Practitioner Family; Visit Provider Nurse Practitioner Family
DX: M10.9 Gout, unspecified (principal)
CPT/HCPCS: 84550

== ENCOUNTER 2024-11-20 11:09 | Outpatient (CLI) | payer MEDICARE, SELFPAY ==
[2024-11-20 10:56] LABS: Microscopic, Urine URINE MICROSCOPIC (MICROSCOPIC)
[2024-11-20 11:12] LABS: Basophils # 0.1 K/mm3 (0-0.2); Basophils % 0.6 % (0.1-2.0); Eosinophils # 0.2 K/mm3 (0.0-0.4); Eosinophils % 2.7 % (0.1-12.0); Hematocrit 45.5 % (37.0-47.0); Hemoglobin 14.7 g/dL (12.2-16.2); Lymphocytes # 2.2 K/mm3 (0.7-4.5); Lymphocytes % 27.3 % (10-50); Mean Corpuscular HGB Conc 32.3 g/dL (31.8-35.4); Mean Corpuscular Hemoglobin 29.7 pg (27.0-31.2); Mean Corpuscular Volume 91.9 fl (81-99); Mean Platelet Volume 10.7 fl (7.4-10.4); Monocytes # 0.5 K/mm3 (0.1-1.0); Monocytes % 6.1 % (1.7-9.3); Neutrophils # 5.1 K/mm3 (1.8-7.8); Neutrophils % 62.8 % (37.0-80.0); Platelet Count 336 K/mm3 (142-424); Red Blood Count 4.95 M/mm3 (4.20-5.40); White Blood Count 8.2 K/mm3 (4.8-10.8)
[2024-11-20 11:45] LABS: Albumin/Globulin Ratio 1.8 (1.1-1.8); GFR (African American) 66 ML/MIN (>60); Globulin 2.8 g/dL (1.3-3.2)
[2024-11-20 11:46] LABS: VLDL Cholesterol 29 mg/dL (0-40)
[2024-11-20 11:58] LABS: Alanine Aminotransferase 30 U/L (12-78); Alkaline Phosphatase 99 U/L (38-126); Anion Gap 17.6 mEq/L (5-15); Aspartate Amino Transferase 36 U/L (14-36); Bilirubin,Total 0.8 mg/dl (0.2-1.3); Blood Urea Nitrogen 16 mg/dl (7-17); Calcium 10.2 mg/dl (8.4-10.2); Carbon Dioxide 23 mmol/L (22.0-30.0); Chloride 101 mmol/L (98-107); Chol/HDL Ratio 3.2 (1-3.5); Cholesterol 185 mg/dl (140-200); Estimated Glomerular Filt Rate 54 ml/min (>60); Glucose 91 mg/dl (74-100); HDL Cholesterol 57 mg/dl (40-60); Potassium 4.6 mmoL/L (3.5-5.1); Sodium 137 mmol/L (136-145); Total Protein,Serum 7.8 g/dl (6.3-8.2); Triglycerides 144 mg/dl (30-150); Uric Acid 4.8 mg/dl (2.5-6.2)
[2024-11-20 12:00] LABS: 25-OH Vitamin D, Total 69.5 ng/mL (30-100)
[2024-11-20 12:09] LABS: Direct LDL Cholesterol 103.69 mg/dL (100-129)
[2024-11-20 12:25] LABS: HIV Combo NEGATIVE (Negative)
[2024-11-20 12:29] LABS: Thyroid Stimulating Hormone 0.87 uIU/mL (0.465-4.68)
[2024-11-20 12:32] LABS: Hepatitis C Ab Qual. W/ RFX NEGATIVE (Negative)
[2024-11-20 12:48] LABS: Vitamin B12 501 pg/mL (239-931)
[2024-11-20 13:02] LABS: Appearance,Urine CLEAR (Clear); Bilirubin,Urine Negative (Negative); Blood, Urine Negative (Negative); Color,Urine YELLOW (Yellow); Glucose,Urine (UA) Negative (Negative); Ketones,Urine Negative (Negative); Leukocyte Esterase,Urine Negative (Negative); Nitrate,Urine Negative (Negative); PH,Urine 6.5 (5.0-8.5); Protein,Urine Negative (Negative); Urobilinogen,Urine 0.2 EU/dl (0.2)
[2024-11-20 13:28] LABS: WBC,Urine Occasional #/hpf (0-3)
[2024-11-20 14:29] LABS: Free T4 (Free Thyroxine) 1.82 ng/dl (0.78-2.19)
== END 2024-11-20 23:59 | disposition home or self-care (01) ==
LOC: LAB.DROPOF 11:09
PROVIDERS: PCP Nurse Practitioner Family; Visit Provider Nurse Practitioner Family
DX: Z00.00 Encounter for general adult medical examination without abnormal findings (principal); K21.9 Gastro-esophageal reflux disease without esophagitis; M10.9 Gout, unspecified; R53.83 Other fatigue; Z13.1 Encounter for screening for diabetes mellitus; I10 Essential (primary) hypertension; E78.5 Hyperlipidemia, unspecified; Z11.4 Encounter for screening for human immunodeficiency virus [HIV]; E55.9 Vitamin D deficiency, unspecified; Z68.32 Body mass index [BMI] 32.0-32.9, adult; Z11.59 Encounter for screening for other viral diseases; G47.33 Obstructive sleep apnea (adult) (pediatric); E03.9 Hypothyroidism, unspecified
CPT/HCPCS: 80053; 80061; 81001; 82306; 82607; 84156; 84439; 84443; 84550; 85025; 86803; 87086; 87389

== ENCOUNTER 2024-12-12 08:51 | Outpatient (CLI) | payer MEDICARE, SELFPAY ==
--- NOTE | 2024-12-12 08:52 | XR_ITS ---
FINAL REPORT TECHNIQUE: Bone densitometry calculations of the lumbar spine and left hip were obtained. CLINICAL HISTORY: osteoporosis screening COMPARISON: 09/10/2022 FINDINGS: Using L1-4, the bone mineral density of the spine is 1.247 g/cm2, corresponding to T-score of 1.8. Using the left hip, the bone mineral density of the femoral neck is 0.958 g/cm2, corresponding to a T-score of 0.1. Using the right hip, the bone mineral density of the femoral neck is 0.832 g/cm?, corresponding to a T-score of -0.2. NOTE: T-score: Standard deviation compared with peak bone mass of young adult mean. *Following the recommendations of the International Society of Bone densitometry, classification of hip BMD is based on the lower of two T-scores; total hip or femoral neck. IMPRESSION: Normal bone mineral density of the lumbar spine and hips. Reviewed, Interpreted and Dictated by Vamshi Roche MD Transcribed by Wendie Daigle Authenticated and [facility]
== END 2024-12-12 23:59 | disposition home or self-care (01) ==
LOC: RAD 08:52
PROVIDERS: PCP Nurse Practitioner Family; Visit Provider Nurse Practitioner Family
DX: Z13.820 Encounter for screening for osteoporosis (principal); E55.9 Vitamin D deficiency, unspecified; Z79.899 Other long term (current) drug therapy
CPT/HCPCS: 77080

== ENCOUNTER 2025-07-11 10:25 | Outpatient (CLI) | payer MEDICARE, SELFPAY ==
[2025-07-11 14:36] LABS: Hematocrit 43.1 % (37.0-47.0); Hemoglobin 14.1 g/dL (12.2-16.2); Immature Granulocytes % 0.3 %; Mean Corpuscular HGB Conc 32.7 g/dL (31.8-35.4); Mean Corpuscular Hemoglobin 30.3 pg (27.0-31.2); Mean Corpuscular Volume 92.7 fl (81-99); Nucleated Red Blood Cells % 0 %; Platelet Count 278 K/mm3 (142-424); Red Blood Count 4.65 M/mm3 (4.20-5.40); Red Cell Distribution Width-SD 41.0 fL; White Blood Count 7.2 K/mm3 (4.8-10.8)
[2025-07-11 16:03] LABS: Iron 144 ug/dL (37-170)
[2025-07-11 16:13] LABS: Total Iron Binding Capacity 367 ug/dL (265-497)
[2025-07-11 16:40] LABS: Ferritin 69.5 ng/ml (11.1-264)
[2025-07-11 16:54] LABS: Vitamin B12 329 pg/mL (239-931)
[2025-07-11 17:11] LABS: Folate 14.60 ng/mL
== END 2025-07-11 23:59 ==
LOC: LAB.DROPOF 07-13 09:39
PROVIDERS: PCP Nurse Practitioner Family; Visit Provider Nurse Practitioner Family
DX: K92.1 Melena (principal); R53.83 Other fatigue
CPT/HCPCS: 82607; 82728; 82746; 83540; 83550; 85025

== ENCOUNTER 2025-07-12 10:44 | Outpatient (CLI) | payer MEDICARE, SELFPAY ==
--- NOTE | 2025-07-12 11:00 | CT_ITS ---
FINAL REPORT TECHNIQUE: Axial images through the abdomen and pelvis were performed without contrast. This study was performed with techniques to keep radiation doses as low as reasonably achievable, (ALARA). Individualized dose reduction techniques using automated exposure control or adjustment of mA and/or kV according to the patient's size were employed. CLINICAL HISTORY: hematochezia bright blood during bowel movement COMPARISON: None FINDINGS: Abdomen: The lung bases are clear. The liver parenchyma demonstrates mild fatty infiltration. The gallbladder is present. The noncontrast enhanced spleen, pancreas, adrenals and kidneys are unremarkable. Pelvis: The urinary bladder is unremarkable. The appendix is normal in appearance. There is no pelvic mass or inflammation. There is extensive diverticulosis of the sigmoid and descending portions of the colon. No evidence of acute inflammatory change to suggest diverticulitis is noted. There is a 1.8 cm left inguinal node identified. IMPRESSION: Extensive diverticulosis of the descending and sigmoid portions of the colon. 1.8 cm left inguinal lymph node is noted, of uncertain significance. Reviewed, Interpreted and Dictated by Vamshi Roche MD Transcribed by Wendie Daigle Authenticated and [facility]
== END 2025-07-12 23:59 | disposition home or self-care (01) ==
LOC: RAD 10:44
PROVIDERS: PCP Nurse Practitioner Family; Visit Provider Nurse Practitioner Family
DX: K57.30 Diverticulosis of large intestine without perforation or abscess without bleeding (principal); K92.1 Melena; R93.5 Abnormal findings on diagnostic imaging of other abdominal regions, including retroperitoneum
CPT/HCPCS: 74176

== ENCOUNTER 2025-08-23 08:03 | Day surgery (SDC) | payer MEDICARE, SELFPAY ==
[2025-08-17 13:39] VITALS: BMI 32.5
--- NOTE | 2025-08-22 07:11 | EXP.HP ---
History of Present Illness *Admission Date: 08/23/25 *History of present illness: Mrs. Max is a 74-year-old female who is here for diagnostic colonoscopy. The patient was referred to our office because of hematochezia/rectal bleeding that occurred about 2 to 3 months ago and then again 4 weeks ago. The patient reports no abdominal pain, weight loss, change in her bowel habits or family history of colon cancer. The patient does report some incomplete bowel evacuation. The patient has never had a colonoscopy. She has had several Cologuard tests which have always been negative. The examination is deemed medically necessary for diagnostic colonoscopy. The patient has been seen, interviewed and examined prior to the procedure by both myself and the anesthesia provider. [facility] Disclaimer: The information contained in this section may have been updated after the patient was seen, as this information can be updated by other users. Medical History (Updated 08/17/25 @ 13:36 by Jessica Carlos RN) Heart murmur Osteoarthritis of right knee Knee effusion, right Acute medial meniscus tear of right knee Right knee pain BMI 32.0-32.9,adult Depression screening negative FRANSISCO (acute kidney injury) Allergic drug rash due to sulfonamide Pain of right anterior lower extremity Puncture wound of left lower leg with foreign body Left leg injury Postmenopausal postcoital bleeding Vaginal atrophy Fluid in endometrial cavity Vitamin D deficiency Hyperlipidemia History of kidney stones Hypertension Hypothyroidism Surgical History History of tubal ligation Family History Other Diabetes Hypertension Social History (Updated 08/17/25 @ 13:36 by Jessica Carlos RN) Smoking Status: Never smoker alcohol intake: never substance use type: denies use current occupational status: retired Travel in the last 8 weeks?: None adopted: No household members: spouse housing: house lives independently: Yes marital status: number of children: 4 number of grandchildren: 7 caffeine: No Have you lived/traveled outside [place] in past 30 days?: No Contact w/someone who lives/traveled outside US past 30 days?: No Exposure to someone with infectious disease in past 14 days?: No Do you have a fever (greater than 100.4 F or 38 C)?: No Have you tested positive for COVID-19?: No Exposed to someone with COVID-19 in past 14 days?: No Do you have a sore throat?: No Do you have a cough?: No Do you have any weakness?: No Are you experiencing any nausea/vomitting?: No Do you have any diarrhea?: No Are you experiencing any unusual bleeding?: No Do you have any muscle aches/pain?: No Do you have any abdominal pain?: No Are you experiencing loss of taste or smell?: No Other Medical History Have you received the Pneumonia Vaccine: Yes Review of Systems Review of Systems Review of systems (narrative): Negative *Cardiovascular Comments: Negative *Gastrointestinal Comments: Negative *Genitourinary Comments: Negative *Musculoskeletal Comments: Negative *Neurologic Comments: Negative Meds Home Medications and Allergies Home Medications ?Medication ?Instructions ?Recorded ?Confirmed ?Type cholecalciferol (vitamin D3) 50 50 mcg PO DAILY 03/03/22 08/17/25 History mcg (2,000 unit) capsule levothyroxine 88 mcg tablet See Rx Instructions .Route 01/12/25 08/17/25 Rx .COMPLEX #90 tabs losartan 100 mg tablet See Rx Instructions .Route 01/12/25 08/17/25 Rx .COMPLEX #90 tabs rosuvastatin 10 mg tablet See Rx Instructions .Route 01/12/25 08/17/25 Rx .COMPLEX #39 tabs sodium,potassium,mag sulfates 17.5 See Rx Instructions PO .COMPLEX 08/13/25 08/17/25 Rx gram-3.13 gram-1.6 gram oral soln #354 mL (Suprep Bowel Prep Kit) New Prescriptions to Start Prescriptions: Allergies Allergy/AdvReac Type Severity Reaction Status Date / Time Sulfa (Sulfonamide Allergy Intermediate Rash Verified 08/17/25 13:33 Antibiotics) contrast dye AdvReac Intermediate rash Uncoded 07/30/25 10:59 Exam *Routine HEENT Exam Head: Present normocephalic Eye: Present EOMI and PERRL ENT: Present mucous membranes moist *Routine Neck Exam Neck: Present supple *Routine Respiratory Exam Respiratory: Present CTA bilaterally *Routine Cardiovascular Exam Cardiovascular: Present RRR *Routine Abdominal Exam Abdominal: Present soft and normoactive bowel sounds; Absent tenderness *Routine Rectal Exam Rectal:: deferred *Routine Genitalia Exam Genitalia:: deferred *Routine Extremities Exam Extremities: Absent cyanosis, clubbing or edema *Routine Skin Exam Skin: Present warm; Absent rash *Routine Neurological Exam Neurological: Present alert and oriented X3 Assessment and Plan *Assessment and plan (1) Hematochezia: Status: Acute Category: Medical Code(s): K92.1 - Melena (2) Incomplete defecation: Status: Acute Category: Medical Code(s): R15.0 - Incomplete defecation Plan A/P: 1. Hematochezia/rectal bleeding with incomplete defecation is the preprocedural diagnosis. The patient will be anesthetized/sedated using MAC sedation. The patient has been seen and examined. Cardiac and lung assessment prior to the examination is stable. Proceed with planned diagnostic colonoscopy.
--- NOTE | 2025-08-23 07:11 | HMH.PROCNOTE ---
[facility] Procedure Note Date: 08/23/25 Time: 10:06 Procedure Note:: Colonoscopy Procedure Report: Colonoscopy with cold snare polypectomy and APC ablation Endoscopist: Denton Loya II, MD Referring physician: MISAEL Webster Date of Procedure: August 23, 2025 Equipment: [employer] [id number] adult colonoscope Sedation: MAC sedation Indication: Mrs. Max is a 74-year-old female who is here for diagnostic colonoscopy. The patient was referred to our office because of hematochezia/rectal bleeding that occurred about 2 to 3 months ago and then again 4 weeks ago. The patient reports no abdominal pain, weight loss, change in her bowel habits or family history of colon cancer. The patient does report some incomplete bowel evacuation. The patient has never had a colonoscopy. She has had several Cologuard tests which have always been negative. The examination is deemed medically necessary for diagnostic colonoscopy. Procedure: Prior to the procedure, a history and physical exam was performed, and patient's medications and allergies were reviewed. The risks, benefits and alternatives of the sedation and procedure were discussed with the patient. All questions were answered and informed consent was obtained. The patient was brought to the procedure room. Patient identification and proposed procedure were verified by the physician and the nurse. The patient was placed in a left lateral decubitus position and the scope was passed under direct vision. Throughout the procedure, the patient's blood pressure, pulse, and oxygen saturations were monitored continuously. The colonoscopy was accomplished without difficulty. The patient tolerated the procedure well. Findings: On digital rectal examination there was normal rectal tone. There were no external hemorrhoids. The colonoscope was introduced through the anal canal to the rectum and advanced to the cecum. The ileocecal valve and appendiceal orifice were identified. The scope was advanced a short distance into the ileum which appeared grossly normal. The scope was then withdrawn into the colon. There was an AVM/angiodysplasia that was 13 to 14 mm in the cecum and this was ablated using APC ablation. There were 9 colon polyps (cecum x 2 (3 and 5 mm), ascending x 5 (3, 3, 4, 5 and 9 mm) and transverse x 2 (4 and 4 mm)). These were all removed via cold snare polypectomy. There were scattered diverticuli throughout the descending and sigmoid colon (LEFT colon). The rectum itself was normal. Upon retroflexion within the rectum there were grade 1 internal hemorrhoids. The preparation was excellent throughout with [place] Preparation Score of 9. The cecal time was 15 minutes. Impression: 1. Diminutive colonic polyps x 9 2. Cecal angiodysplasia/AVM status post APC ablation 3. Left-sided diverticulosis 4. Grade 1 internal hemorrhoids Plan: The patient did have 2 episodes of overt GI bleeding. This can occur with angiodysplasias (although it is mostly occult bleeding) or this could occur with diverticular hemorrhage. Her internal hemorrhoids were small but still could have caused the bleeding but less likely. I will discuss these findings with the patient and family and initiate a fiber bowel regimen (combined MiraLAX plus Metamucil). I will follow-up the polyp histology and recommend repeat screening/surveillance colonoscopy again in 3 years.
[2025-08-23 08:29] VITALS: BP 186/76; PULSE 94; RESP 20; TEMP 36.3; O2SAT 98
[2025-08-23] MEDS: LACTATED RINGERS 1000ML 1,000 ML 50 ML IV (08:37)
--- NOTE | 2025-08-23 09:00 | EXP.ANES.CKL ---
[facility] Disclaimer: The information contained in this section may have been updated after the patient was seen, as this information can be updated by other users. Medical History (Updated 08/17/25 @ 13:36 by Jessica Carlos RN) Heart murmur Osteoarthritis of right knee Knee effusion, right Acute medial meniscus tear of right knee Right knee pain BMI 32.0-32.9,adult Depression screening negative FRANSISCO (acute kidney injury) Allergic drug rash due to sulfonamide Pain of right anterior lower extremity Puncture wound of left lower leg with foreign body Left leg injury Postmenopausal postcoital bleeding Vaginal atrophy Fluid in endometrial cavity Vitamin D deficiency Hyperlipidemia History of kidney stones Hypertension Hypothyroidism Surgical History History of tubal ligation Family History Other Diabetes Hypertension Social History (Updated 08/17/25 @ 13:36 by Jessica Carlos RN) Smoking Status: Never smoker alcohol intake: never substance use type: denies use current occupational status: retired Travel in the last 8 weeks?: None adopted: No household members: spouse housing: house lives independently: Yes marital status: number of children: 4 number of grandchildren: 7 caffeine: No Have you lived/traveled outside US in past 30 days?: No Contact w/someone who lives/traveled outside US past 30 days?: No Exposure to someone with infectious disease in past 14 days?: No Do you have a fever (greater than 100.4 F or 38 C)?: No Have you tested positive for COVID-19?: No Exposed to someone with COVID-19 in past 14 days?: No Do you have a sore throat?: No Do you have a cough?: No Do you have any weakness?: No Are you experiencing any nausea/vomitting?: No Do you have any diarrhea?: No Are you experiencing any unusual bleeding?: No Do you have any muscle aches/pain?: No Do you have any abdominal pain?: No Are you experiencing loss of taste or smell?: No [facility] Anesthesia Checklist Patient Identification Patient Identification: Arm Band and Verbal (Name & ) Structural Data Admitted From: Home Planned Operative Procedure/s: Colonoscopy Consent for Planned Operative Procedure(s) Verified: Yes Verified Documents: Surgical Consent NPO Status Verified Time NPO: 00:00 Chart Verification Results Verified: None Additional verifications Anesthesia Reactions: No Airway Assessment Mallampati Score:: Class II C-Spine Mobility Assessed: Yes TMJ Mobility Assessed: Yes Dentition: Good Dentition Neurological Assessment Level of Consciousness: Awake, Alert and Appropriate Hx Seizures: No Numbness or tingling in extremities: No Anesthesia Plan Anesthesia Risk discussed: Yes Anesthesia Plan: Verified Anesthesia Type: MAC
[2025-08-23 10:06] VITALS: BP 104/55; PULSE 82; RESP 16; O2SAT 95
[2025-08-23 10:16] VITALS: BP 96/57; PULSE 83; RESP 16; O2SAT 95
[2025-08-23 10:26] VITALS: BP 112/68; PULSE 90; RESP 18; O2SAT 98
[2025-08-23 10:36] VITALS: BP 125/76; PULSE 90; RESP 18; O2SAT 99
== END 2025-08-23 10:48 | disposition home or self-care (01) ==
PROVIDERS: PCP Nurse Practitioner Family; Visit Provider Internal Medicine Gastroenterology
PROC: 0DJD8ZZ Inspection of Lower Intestinal Tract, Via Natural or Artificial Opening Endoscopic (ICD-10-PCS; CPT 45378; principal; 2025-08-23 09:30)
DX: D12.3 Benign neoplasm of transverse colon (principal); D12.0 Benign neoplasm of cecum; D12.2 Benign neoplasm of ascending colon; K64.0 First degree hemorrhoids; K57.30 Diverticulosis of large intestine without perforation or abscess without bleeding; K55.20 Angiodysplasia of colon without hemorrhage; K92.1 Melena; E03.9 Hypothyroidism, unspecified; E78.5 Hyperlipidemia, unspecified; I10 Essential (primary) hypertension; Z88.2 Allergy status to sulfonamides
CPT/HCPCS: 45385; 88305; C2618; J2003; J2704; J7120

== ENCOUNTER 2025-09-28 02:57 | Emergency (ER) | payer MEDICARE, SELFPAY ==
--- NOTE | 2025-09-28 03:11 | CT_ITS ---
PROCEDURE INFORMATION: Exam: CT Abdomen And Pelvis Without Contrast Exam date and time: 09/28/2025 3:24 AM Age: 74 years old Clinical indication: Abdominal pain; Flank; Right; Additional info: R flank pain HX kidney stones TECHNIQUE: Imaging protocol: Computed tomography of the abdomen and pelvis without contrast. Radiation optimization: All CT scans at this facility use at least one of these dose optimization techniques: automated exposure control; mA and/or kV adjustment per patient size (includes targeted exams where dose is matched to clinical indication); or iterative reconstruction. COMPARISON: CT ABDOMEN PELVIS WO CON 07/12/2025 11:08 AM FINDINGS: Liver: Normal. No mass. Gallbladder and biliary ducts: Normal. No calcified stones. No ductal dilation. Pancreas: Normal. No ductal dilation. Spleen: Normal. No splenomegaly. Adrenal glands: Normal. No mass. Kidneys and ureters: No evidence of renal stone or obstruction. Stomach and bowel: Extensive diverticulosis, no evidence of diverticulitis. Appendix: No evidence of appendicitis. Intraperitoneal space: Unremarkable. No free air. No significant fluid collection. Vasculature: Unremarkable. No abdominal aortic aneurysm. Lymph nodes: Unremarkable. No enlarged lymph nodes. Urinary bladder: Unremarkable as visualized. Reproductive: Unremarkable as visualized. Bones/joints: Degenerative disc disease with vacuum disc phenomena and disc space narrowing this is most prominent at L5-S1. No acute fracture. A grade 1 anterolisthesis of L4 over L5. Soft tissues: Unremarkable. IMPRESSION: 1. Extensive diverticulosis, no evidence of diverticulitis. 2. No evidence of renal stone or obstruction.
[2025-09-28 03:12] VITALS: BP 207/93; PULSE 96; RESP 16; TEMP 36.4; O2SAT 99; BMI 31.1
[2025-09-28 03:16] LABS: Microscopic, Urine URINE MICROSCOPIC (MICROSCOPIC)
[2025-09-28 03:18] LABS: Bilirubin,Urine Negative (Negative); Color,Urine YELLOW (Yellow); Glucose,Urine (UA) Negative (Negative); Ketones,Urine Negative (Negative); Leukocyte Esterase,Urine Negative (Negative); PH,Urine 5.5 (5.0-8.5); Protein,Urine Negative (Negative); Specific Gravity, Urine >= 1.030 (1.005-1.030); Urobilinogen,Urine 0.2 EU/dl (0.2)
[2025-09-28 03:28] LABS: Hematocrit 43.3 % (37.0-47.0); Hemoglobin 14.5 g/dL (12.2-16.2); Immature Granulocytes % 0.3 %; Mean Corpuscular HGB Conc 33.5 g/dL (31.8-35.4); Mean Corpuscular Hemoglobin 30.2 pg (27.0-31.2); Mean Corpuscular Volume 90.2 fl (81-99); Nucleated Red Blood Cells % 0 %; Platelet Count 267 K/mm3 (142-424); Red Blood Count 4.80 M/mm3 (4.20-5.40); Red Cell Distribution Width-SD 39.2 fL; White Blood Count 11.7 K/mm3 (4.8-10.8)
[2025-09-28] MEDS: LACTATED RINGERS 1000ML 1,000 ML 999 ML IV (03:29)
[2025-09-28] MEDS: KETOROLAC 15MG/ML VIAL 15 MG IV (03:30)
[2025-09-28] MEDS: ONDANSETRON 4MG/2ML VIAL 4 MG IV (03:30)
[2025-09-28 03:33] LABS: Alanine Aminotransferase 27 U/L (12-78); Albumin Level 4.9 g/dl (3.5-5.0); Albumin/Globulin Ratio 1.5 (1.1-1.8); Alkaline Phosphatase 83 U/L (38-126); Anion Gap 13.9 mEq/L (5-15); Aspartate Amino Transferase 32 U/L (14-36); Bilirubin,Total 0.7 mg/dl (0.2-1.3); Blood Urea Nitrogen 15 mg/dl (7-17); Calcium 9.9 mg/dl (8.4-10.2); Carbon Dioxide 21 mmol/L (22.0-30.0); Chloride 102 mmol/L (98-107); Creatinine Clearance Estimated 61 mL/min (50-200); Creatinine,Serum 1.00 mg/dl (0.52-1.04); Estimated Glomerular Filt Rate 54 ml/min (>60); GFR (African American) 66 ML/MIN (>60); Globulin 3.2 g/dL (1.3-3.2); Glucose 127 mg/dl (74-100); Potassium 3.9 mmoL/L (3.5-5.1); Sodium 133 mmol/L (136-145); Total Protein,Serum 8.1 g/dl (6.3-8.2)
[2025-09-28 03:34] LABS: INR 0.98 (0.9-1.1); Prothrombin Time 10.9 seconds (10.1-12.5)
--- NOTE | 2025-09-28 03:37 | ED_ITS ---
Discharge Plan Disposition Patient Disposition: Home, Self-Care Condition: Good Prescriptions Prescriptions: No Action cholecalciferol (vitamin D3) 50 mcg (2,000 unit) capsule 50 mcg PO DAILY losartan 100 mg tablet See Rx Instructions .ROUTE .COMPLEX Qty: 90 3RF Dose Instruction: TAKE 1 TABLET BY MOUTH DAILY Rx Instructions: TAKE 1 TABLET BY MOUTH DAILY rosuvastatin 10 mg tablet See Rx Instructions .ROUTE .COMPLEX Qty: 39 3RF Dose Instruction: TAKE 1 TABLET BY MOUTH DAILY ON WEDNESDAY, WEDNESDAY, AND WEDNESDAY Rx Instructions: TAKE 1 TABLET BY MOUTH DAILY ON WEDNESDAY, WEDNESDAY, AND WEDNESDAY levothyroxine 88 mcg tablet See Rx Instructions .ROUTE .COMPLEX Qty: 90 3RF Dose Instruction: TAKE 1 TABLET BY MOUTH DAILY Rx Instructions: TAKE 1 TABLET BY MOUTH DAILY sodium,potassium,mag sulfates [Suprep Bowel Prep Kit] 17.5-3.13-1.6 gram recon soln See Rx Instructions PO .COMPLEX Qty: 354 0RF Rx Instructions: DILUTE; drink full amount early evening before AND next morning at least 4-5 hr before procedure; follow w 960 mL water PO Referrals Follow up/Referrals: Cammie August APRN [Primary Care Provider, Family Practice] - See instructions Activity Restrictions/Add. Instructions Additional Instructions/Restrictions: You were evaluated in the ER and are believed to be appropriate for discharge at this time. Take Tylenol ibuprofen at home if needed for pain, do not exceed the recommended dose on the bottle. Drink water and eat a small snack each time you take these medications to avoid side effects. When you get home, take your blood pressure medications. Increase your water intake to stay well-hydrated and flush your urinary system. Make an appointment with your primary care doctor for reevaluation in 1 to 2 days to ensure your symptoms are improving. Return to the ER with any new, worsening, or otherwise concerning symptoms as discussed. Clinical Impressions Clinical Impression: Acute right flank pain, Hematuria, Hypertension Instructions Patient Instructions: DI for Acute Abdominal Pain Print Language Print Language: [place] Discharge ED Provider: Nicola Jackson Adult HPI General Chief complaint: Abdominal Pain Stated complaint: R abd, back pain, nausea Time Seen by Provider: 09/28/25 03:09 Mode of Arrival: Ambulatory Source of Information: Patient Description of Symptoms (Recalled from ER Triage Doc. by RN): Pt presents with right flank pain that began at bedtime last evening around 8pm. Pt states she woke up around 1230 and it had worsened. Pt has a hx of kidney stones and feels this is what is causing her pain. Pt reports nausea and pain 6/10. History of Present Illness HPI narrative: 74-year-old female presents to the ED complaining of right flank pain that started around 7 PM but worsened just after midnight approximately 3 hours prior to arrival. Patient reports a history of kidney stones and states this feels similar. She reports nausea and pain in the right posterior flank rated 6 out of 10 with no radiation. She has no pain in the abdomen, no vomiting or diarrhea. Denies dysuria or hematuria. She states she has never required a procedure to remove or break up a stone. She reports her last kidney stone was 5 or 6 years ago. She has never establish care with urology. She denies headache or dizziness, no fevers or chills, no chest pain or difficulty breathing, no diarrhea or constipation, no other complaints or concerns. No medications prior to arrival. Related Data Home Medications ?Medication ?Instructions ?Recorded ?Confirmed cholecalciferol (vitamin D3) 50 50 mcg PO DAILY 08/17/25 mcg (2,000 unit) capsule Previous Rx's ?Medication ?Instructions ?Recorded levothyroxine 88 mcg tablet See Rx Instructions .Route 01/12/25 .COMPLEX #90 tabs losartan 100 mg tablet See Rx Instructions .Route 0 01/12/25 .COMPLEX #90 tabs rosuvastatin 10 mg tablet See Rx Instructions .Route 0 01/12/25 .COMPLEX #39 tabs sodium,potassium,mag sulfates 17.5 See Rx Instructions PO .COMPLEX 08/13/25 gram-3.13 gram-1.6 gram oral soln #354 mL (Suprep Bowel Prep Kit) Allergies Allergy/AdvReac Type Severity Reaction Status Date / Time Sulfa (Sulfonamide Allergy Intermediate Rash Verified 08/17/25 13:33 Antibiotics) contrast dye AdvReac Intermediate rash Uncoded 07/30/25 10:59 PFSH PFS Disclaimer: The information contained in this section may have been updated after the patient was seen, as this information can be updated by other users. Medical History (Updated 09/28/25 @ 04:26 by Nicola Jackson MD) Heart murmur Osteoarthritis of right knee Knee effusion, right Acute medial meniscus tear of right knee Right knee pain BMI 32.0-32.9,adult Depression screening negative FRANSISCO (acute kidney injury) Allergic drug rash due to sulfonamide Pain of right anterior lower extremity Puncture wound of left lower leg with foreign body Left leg injury Postmenopausal postcoital bleeding Vaginal atrophy Fluid in endometrial cavity Vitamin D deficiency Hyperlipidemia History of kidney stones Hypertension Hypothyroidism Surgical History History of tubal ligation Family History Other Diabetes Hypertension Social History (Updated 08/17/25 @ 13:36 by Jessica Carlos RN) Smoking Status: Never smoker alcohol intake: never substance use type: denies use current occupational status: retired Travel in the last 8 weeks?: None adopted: No household members: spouse housing: house lives independently: Yes marital status: number of children: 4 number of grandchildren: 7 caffeine: No Have you lived/traveled outside US in past 30 days?: No Contact w/someone who lives/traveled outside US past 30 days?: No Exposure to someone with infectious disease in past 14 days?: No Do you have a fever (greater than 100.4 F or 38 C)?: No Have you tested positive for COVID-19?: No Exposed to someone with COVID-19 in past 14 days?: No Do you have a sore throat?: No Do you have a cough?: No Do you have any weakness?: No Do you have any diarrhea?: No Are you experiencing any unusual bleeding?: No Do you have any muscle aches/pain?: No Do you have any abdominal pain?: Yes Are you experiencing loss of taste or smell?: No Other Medical History Have you received the Pneumonia Vaccine: Yes ROS Obtained: Yes Systems reviewed as appropriate & no additional complaints except as documented Per HPI Physical Exam General General appearance: alert and in no apparent distress Head Head exam: atraumatic and normocephalic Eye Eye exam: Present PERRL and EOMI ENT ENT exam: Present mucous membranes moist Neck Neck exam: Present normal inspection and full ROM Chest Chest inspection: Present symmetric chest wall rise Respiratory Respiratory exam: Absent respiratory distress or stridor Cardiovascular Cardiovascular exam: Present regular rate and normal rhythm Abdominal Exam Abdominal exam: Present soft; Absent distention, tenderness, guarding or rebound Extremities Exam Extremities exam: Present full ROM Back Exam Back exam: Present full ROM and CVA tenderness (R) (Mild); Absent CVA tenderness (L) Neurological Exam Neurological exam: Present alert and oriented X3; Absent motor sensory deficit Psychiatric Psychiatric exam: Present normal affect and normal mood Skin Skin exam: Present warm and dry Medical Decision Making Medical Records Medical records reviewed: Yes I reviewed the patient's medical records. Screening: Per USPSTF and CDC recommendations, given the prevalence of disease in our region, it is our hospital?s policy to screen for HIV and viral Hepatitis for all patients aged 18 and over and those with ongoing risk factors. MR Comment: CT abdomen pelvis from July 2025 demonstrates diverticulosis, enlarged left inguinal lymph node, no other acute abnormalities. Review of most recent family medicine note demonstrates patient had negative Cologuard in 09/2022, she had presented for concerns of hematochezia. Recommended to receive CT and follow-up for colonoscopy. Review of colonoscopy demonstrates diminutive colonic polyps x 9, cecal angiodysplasia/AVM status post APC ablation, left- sided diverticulosis, grade 1 internal hemorrhoids. GI recommended fiber regimen. Recommended follow-up polyp histology and repeat screening in 3 years. Histology demonstrated tubular adenomas and hyperplastic polyps without high- grade dysplasia or malignancy Jean-Pierre Inquiry Pt receiving controlled substance: No Vital Signs: 09/28/25 03:12 Temperature 97.6 F Temperature Source Oral Pulse Rate [Left] 96 H Respiratory Rate 16 Blood Pressure [Right Arm] 207/93 H Blood Pressure Mean [Right Arm] 131 Blood Pressure Source [Right Arm] Automatic Cuff Blood Pressure Position [Right Arm] Sitting 02 Sat by Pulse Oximetry 99 Oxygen Delivery Method Room Air Lab Data Lab Results 09/28/25 03:10: Urine Color Yellow, Urine Appearance Clear, Urine pH 5.5, Ur Specific [place] >= 1.030, Urine Protein Negative, Urine Glucose (UA) Negative, Urine Ketones Negative, Urine Blood 1+ A, Urine Nitrate Negative, Urine Bilirubin Negative, Urine Urobilinogen 0.2, Ur Leukocyte Esterase Negative, Urine RBC 5-10 09/28/25 03:14: WBC 11.7 H, RBC 4.80, Hgb 14.5, Hct 43.3, MCV 90.2, MCH 30.2, MCHC 33.5, RDW 11.8, Plt Count 267, MPV 10.1, Neut % (Auto) 61.2, Lymph % (Auto) 31.3, [place] % (Auto) 6.0, Eos % (Auto) 0.8, Baso % (Auto) 0.4, Neut # (Auto) 7.2, Lymph # (Auto) 3.7, [place] # (Auto) 0.7, Eos # (Auto) 0.1, Baso # (Auto) 0.1, PT 10.9, INR 0.98, Sodium 133 L, Potassium 3.9, Chloride 102, Carbon Dioxide 21 L, Anion Gap 13.9, BUN 15, Creatinine 1.00, Estimated Creat Clear 61, Estimated GFR 54 L, Est GFR ( Amer) 66, Glucose 127 H, Lactate 1.6, Calcium 9.9, Total Bilirubin 0.7, AST 32, ALT 27, Alkaline Phosphatase 83, Total Protein 8.1, Albumin 4.9, Globulin 3.2, Albumin/Globulin Ratio 1.5 09/28/25 03:14 09/28/25 03:14 Orders (Tests/Meds): ED MEDICATIONS Generic Name Dose Route Start Last Admin Trade Name Freq PRN Reason Stop Dose Admin Lactated Ringer's 1,000 mls @ 999 mls/hr 09/28/25 03:11 09/28/25 03:29 Lactated Ringer's 1000 Ml Bag IV 09/28/25 04:11 999 mls/hr .Q1H1M ONE Administration Discontinued Medications Generic Name Dose Route Start Last Admin Trade Name Freq PRN Reason Stop Dose Admin Ketorolac Tromethamine 15 mg 09/28/25 03:11 09/28/25 03:30 Ketorolac 15mg/Ml Vial IV 09/28/25 03:12 15 mg ONCE ONE Administration Morphine Sulfate 4 mg 09/28/25 03:47 09/28/25 03:58 Morphine 4mg/Ml Syringe IV 09/28/25 03:48 4 mg ONCE ONE Administration Ondansetron HCl 4 mg 09/28/25 03:11 09/28/25 03:30 Ondansetron 4mg/2ml Vial IV 09/28/25 03:12 4 mg ONCE ONE Administration ORDERS Category Date Time Status CT abdomen pelvis wo con Stat Cat Scan 09/28/25 03:11 Completed Complete Blood Count Auto Diff Stat Lab 09/28/25 03:14 Completed Comprehensive Metabolic Panel Stat Lab 09/28/25 03:14 Completed Lactic Acid Stat Lab 09/28/25 03:14 Completed Prothrombin Time INR Stat Lab 09/28/25 03:14 Completed Trop I [Troponin I] Stat Lab 09/28/25 03:14 Received Troponin I Q3H Lab 09/28/25 07:00 Ordered Troponin I Q3H Lab 09/28/25 10:00 Ordered Urinalysis and Microscopic Stat Lab 09/28/25 03:10 Completed ECG Request Stat Y 09/28/25 03:56 Ordered Medical Decision Narrative: In summary, this 74-year-old female with comorbidities described in the HPI presents to the emergency department today with right posterior flank pain reminiscent of previous kidney stones. On initial evaluation patient is hypertensive likely from pain but otherwise hemodynamically stable, afebrile, GCS 15, independently ambulatory into the ER, only notable for mild right CVA tenderness. Remainder of exam benign. Differential diagnosis includes but is not limited to urinary tract infection, pyelonephritis, ureterolithiasis, hydronephrosis, kidney dysfunction, infected stone, I did consider the possibility of biliary pathology such as cholelithiasis or cholecystitis or other intra-abdominal pathology however given patient's history and her current symptoms I believe it is most likely she has a stone or other urologic pathology. Specifically patient has no right upper quadrant tenderness to palpation, no Muñiz sign, and pain is not made worse by eating or drinking. This significantly decreases my concern for gallbladder pathology. Based on these concerns, I ordered hematologic and serum labs, CT without contrast due to contrast allergy, urinalysis. Patient is slightly overweight so her natural body fat should act as contrast if there is significant infectious or inflammatory pathology. Patient received Toradol, Zofran, IV fluids initially for treatment. Labs personally reviewed demonstrate mild leukocytosis WBC 11.7, CBC otherwise normal, PT/INR normal, CMP nonactionable, no kidney dysfunction, UA with small blood but negative for findings of infection. Lactic normal at 1.6 reassuring against acute surgical pathology or organ dysfunction. CT abdomen pelvis personally interpreted does not demonstrate obvious kidney stone, there is abnormal structure of the right kidney but this appears stable from prior. See radiology read for final interpretation. Patient was still uncomfortable after having received Toradol and Zofran so morphine was administered. I am suspicious that she may have passed a kidney stone since she does have blood in her urine and flank pain consistent with with her previous stones. To be thorough I did add on EKG and cardiac enzyme just to rule out very atypical presentation of ACS but I would be surprised to find an abnormality with this added workup. Discussed that if her ECG and troponin are reassuring that I believe she can be discharged and she is comfortable with this plan. She reports a close relationship with her PCP and think she should be able to be seen by them in the next 1 to 2 days. ECG personally interpreted demonstrates sinus rhythm, rate 81, normal axis, normal WA and QTc, no STEMI, normal ECG. Troponin undetectably low less than 0.01 significantly reassuring in the setting of nonischemic ECG, no chest pain or shortness of breath, and patient having symptoms for more than 6 hours prior to arrival. If her symptoms were cardiac in etiology her troponin should be elevated by now. On reassessment patient has had some improvement of pain since receiving morphine. She does have degenerative changes on her CT which could be causing muscle spasm though I still think it is most likely her symptoms are related to a rapid transit stone since she has small hematuria. Patient is comfortable with the plan for discharge since labs, imaging, and workup are overall very reassuring. She has a close relationship with her PCP and is going to call her this morning to make an appointment to be seen in the next 1 to 2 days. I instructed the patient to stay well-hydrated and gave recommendations for symptomatic monitoring and management at home. She was instructed on follow-up as well as given strict return precautions for the ER. She indicated understanding and the patient was discharged in stable condition. Critical Care Critical Care Time Critical Care Time: No
[2025-09-28] MEDS: MORPHINE 4MG/ML SYRINGE 4 MG IV (03:58)
--- NOTE | 2025-09-28 04:15 | ECG_ITS ---
APPROVED REPORT Exam: Resting ECG HR:81 bpm ECG Measurements Heart Rate 81 AXES RI 151 P 70 QRSd 93 QRS 47 QT 370 T 53 QTc 407 Conclusion SINUS RHYTHM NORMAL ECG Electronically signed by : LUAN ROMANO, 09/29/2025 07:24:01
[2025-09-28 04:19] LABS: Troponin I < 0.01 ng/ml (0.00-0.034)
[2025-09-28 04:27] VITALS: BP 190/90; PULSE 74; RESP 16; TEMP 36.6; O2SAT 97
== END 2025-09-28 04:33 | disposition home or self-care (01) ==
PROVIDERS: Emergency Provider Emergency Medicine; PCP Nurse Practitioner Family
DX: R10.A1 Flank pain, right side (principal); R31.9 Hematuria, unspecified; I10 Essential (primary) hypertension; R11.0 Nausea; Z87.442 Personal history of urinary calculi
CPT/HCPCS: 74176; 80053; 81001; 83605; 84484; 85025; 85610; 93005; 96361; 96374; 96375; 99285; J1885; J2270; J2405; J7120

== ENCOUNTER 2025-10-01 14:28 | Outpatient (CLI) | payer MEDICARE, SELFPAY ==
--- NOTE | 2025-10-01 14:31 | XR_ITS ---
FINAL REPORT CLINICAL HISTORY: constipation COMPARISON: None FINDINGS: AP and upright views of the abdomen demonstrate a nonspecific but nonobstructive bowel gas pattern. There is no free air. No renal stones seen. No acute osseous abnormality. IMPRESSION: Nonspecific but nonobstructive bowel gas pattern. Reviewed, Interpreted and Dictated by Britta Eddy MD Transcribed by Myrna Mackenzie Authenticated and [facility]
== END 2025-10-01 23:59 | disposition home or self-care (01) ==
LOC: RAD 14:28
PROVIDERS: PCP Nurse Practitioner Family; Visit Provider Nurse Practitioner Family
DX: K59.00 Constipation, unspecified (principal); R10.9 Unspecified abdominal pain; R31.9 Hematuria, unspecified
CPT/HCPCS: 74019; 87086

== ENCOUNTER 2025-10-26 09:09 | Outpatient (CLI) | payer MEDICARE, SELFPAY ==
--- NOTE | 2025-10-26 09:30 | CA_ITS ---
FINAL REPORT TECHNIQUE: Spectral and color Doppler exam CLINICAL HISTORY: history of right renal stone , HTN COMPARISON: None FINDINGS: DOPPLER RENAL VESSELS HISTORY: Hypertension . FINDINGS: Intrarenal resistive indices on the right are 0.72-0.76, normal . Intrarenal resistive indices on the left are 0.69-0.75, normal . Renal size is normal and symmetric. Right main renal artery systolic velocity: 179 cm/sec. Aortic-right renal artery flow velocity ratio: 1.3 COMMENT: Less than 50% stenosis of the right renal artery.. Left main renal artery systolic velocity: 148 cm/sec. Aortic-left renal artery flow velocity ratio: 1.1 COMMENT: Less than 50% stenosis of the left renal artery. IMPRESSION: Less than 50% stenosis of the bilateral renal arteries. CTA or gadolinium-enhanced MR may be considered as a more sensitive exam. Alternatively noncontrast MRI may be considered for assessing main renal arteries for stenosis as a more sensitive exam if the patient has renal insufficiency. Reviewed, Interpreted and Dictated by Ever Rosario MD Transcribed by Wendie Daigle Authenticated and [facility]
--- NOTE | 2025-10-26 10:30 | US_ITS ---
FINAL REPORT CLINICAL HISTORY: htn COMPARISON: none FINDINGS: RENAL ULTRASOUND Ultrasound images of the kidneys were obtained. Limited images of the liver parenchyma demonstrate it is hyperechoic, consistent with fatty change. The visualized spleen is unremarkable. The right kidney measures 9.9 cm in length. It is normal echogenicity. There is no hydronephrosis. The left kidney measures 10.3 cm in length. It is normal echogenicity. There is no hydronephrosis. IMPRESSION: Normal renal ultrasound. Reviewed, Interpreted and Dictated by Ever Rosario MD Transcribed by Myrna Mackenzie Authenticated and [facility]
== END 2025-10-26 23:59 | disposition home or self-care (01) ==
LOC: RT 09:10
PROVIDERS: PCP Nurse Practitioner Family; Visit Provider Nurse Practitioner Family
DX: I70.1 Atherosclerosis of renal artery (principal); I10 Essential (primary) hypertension
CPT/HCPCS: 76770; 93976